=== PATIENT | female | born 2000 | race Hispanic/Latino ===

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

== ENCOUNTER 2020-12-03 19:36 | Emergency (ER) | payer BC ==
[~2020-12-03 19:36] MED LIST: Iopamidol-370 76% 500 ML 1 ML ONE
[2020-12-03 20:43] LABS: Bacteria/HPF 4+ HPF (None Seen); Bilirubin Negative (Negative); Blood, Urine Negative (Negative); Clarity Clear (Clear); Glucose, Urine (Dipstick) Normal (Negative); Ketone, Urine Negative (Negative); Leukocyte 250 Leu/uL (Negative); Nitrite Negative (Negative); Protein, Urine (Dipstick) Negative (Neg-Trace); RBC/HPF 0-3 HPF (0-3); Squamous Epithelial 0-3 HPF (0-3); Urobilinogen Normal mg/dL (Less than 2); WBC/HPF 0-3 HPF (0-3)
[2020-12-03 20:47] LABS: #Eosinphils 0.2 thou/uL (0.0-0.7); #Lymphocytes 2.5 thou/uL (1.20-3.40); #Monocytes 0.5 thou/uL (0.11-0.59); #Neutrophils 4.2 thou/uL (1.40-6.50); %Basophils 0.6 % (0.0-1.0); %Eosinophils 2.4 % (0.0-10.0); %Lymphocytes 33.7 % (21.0-51.0); %Monocytes 6.3 % (0.0-10.0); %Neutrophils 57.1 % (42.0-75.0); Hemoglobin 13.1 g/dL (12.0-16.0); Mean Corpuscular HGB CONC 33.7 g/dL (32.0-36.0); Mean Corpuscular Hemoglobin 27.1 pg (27.0-31.0); Mean Corpuscular Volume 80.3 fL (78.0-98.0); Platelet Count 296 thou/uL (130-400); RBC Distribution Width 13.6 % (11.5-14.5); Red Blood Cell (RBC) Count 4.85 mill/uL (4.20-5.40); White Blood Cell (WBC) Count 7.3 thou/uL (4.8-10.8)
[2020-12-03 20:50] LABS: Pregnancy Test - Urine (BHCG) Negative (Negative); Pregu Control Background? CLEAR/WHITE (CLR/WHITE); Pregu Control Bar Appear? YES (CONTROL BAR)
[2020-12-03 22:09] LABS: Albumin 3.9 g/dL (3.5-5.0)
[2020-12-03 22:10] LABS: Chloride 103 mmol/L (98-107); Potassium 3.7 mmol/L (3.5-5.1); Sodium 135 mmol/L (136-145)
[2020-12-03 22:11] LABS: Calcium 8.5 mg/dL (7.8-10.44); Glucose 94 mg/dL (70-105)
[2020-12-03 22:12] LABS: Globulin 2.6 g/dL (2.4-3.5); Protein, Total 6.5 g/dL (6.0-8.3)
[2020-12-03 22:13] LABS: Anion Gap 13 mmol/L (10-20); Bilirubin, Total 0.3 mg/dL (0.2-1.2); Carbon Dioxide 23 mmol/L (22-29)
[2020-12-03 22:14] LABS: Alkaline Phosphatase 82 U/L (40-110)
[2020-12-03 22:15] LABS: Calc. Creatinine Clearance 0 mL/min (70-130)
[2020-12-03 22:16] LABS: BUN (Urea Nitrogen) 9 mg/dL (7.0-18.7)
[2020-12-03 22:17] LABS: ALT (SGPT) 22 U/L (8-55); AST (SGOT) 15 U/L (5-34)
[2020-12-03 22:18] LABS: Lipase 57 U/L (8-78)
== END 2020-12-03 22:24 | disposition home or self-care (01) ==
LOC: ERS 19:36
DX: I88.0 Nonspecific mesenteric lymphadenitis (principal); R03.0 Elevated blood-pressure reading, without diagnosis of hypertension; Z79.899 Other long term (current) drug therapy
CPT/HCPCS: 36415; 74177; 80053; 81003; 81015; 81025; 83690; 85025; 87086; Q9967

== ENCOUNTER 2022-03-27 19:48 | Emergency (ER) | payer BC, SELFPAY ==
[2022-03-27 21:29] LABS: Bilirubin Negative (Negative); Blood, Urine 3+ (Negative); Clarity Turbid (Clear); Glucose, Urine (Dipstick) Normal (Negative); Ketone, Urine Negative (Negative); Leukocyte Negative Leu/uL (Negative); Nitrite Negative (Negative); Protein, Urine (Dipstick) 20 mg/dL (Neg-Trace); RBC/HPF Greater than 50 HPF (0-3); Specific Gravity, Urine 1.025 (1.002-1.036); Squamous Epithelial 0-3 HPF (0-3); Urobilinogen Normal mg/dL (Less than 2)
[2022-03-27 21:30] LABS: Bacteria/HPF 1+ HPF (None Seen)
[2022-03-27 21:41] LABS: #Eosinphils 0.2 thou/uL (0.0-0.7); #Monocytes 0.9 thou/uL (0.11-0.59); #Neutrophils 5.2 thou/uL (1.40-6.50); %Basophils 0.4 % (0.0-1.0); %Eosinophils 2.6 % (0.0-10.0); %Lymphocytes 32.1 % (21.0-51.0); %Monocytes 9.7 % (0.0-10.0); %Neutrophils 55.2 % (42.0-75.0); Hemoglobin 11.9 g/dL (12.0-16.0); Mean Corpuscular HGB CONC 34.3 g/dL (32.0-36.0); Mean Corpuscular Hemoglobin 27.5 pg (27.0-31.0); Mean Corpuscular Volume 80.3 fl (78.0-98.0); Mean Platelet Volume 7.9 fL (7.4-10.4); Platelet Count 254 10x3/uL (130-400); RBC Distribution Width 14.7 % (11.5-14.5); Red Blood Cell (RBC) Count 4.31 mill/uL (4.20-5.40); White Blood Cell (WBC) Count 9.3 10x3/uL (4.8-10.8)
[2022-03-27 22:02] LABS: ALT (SGPT) 13 U/L (8-55); AST (SGOT) 17 U/L (5-34); Albumin 3.8 g/dL (3.5-5.0); Alkaline Phosphatase 62 U/L (40-110); Anion Gap 11 mmol/L (10-20); BUN (Urea Nitrogen) 10 mg/dL (7.0-18.7); Bilirubin, Total 0.2 mg/dL (0.2-1.2); Calc. Creatinine Clearance 0 mL/min (70-130); Calcium 8.6 mg/dL (7.8-10.44); Carbon Dioxide 24 mmol/L (22-29); Chloride 106 mmol/L (98-107); Estimated GFR 125; Globulin 2.7 g/dL (2.4-3.5); Glucose 95 mg/dL (70-105); Lipase 63 U/L (8-78); Potassium 3.6 mmol/L (3.5-5.1); Protein, Total 6.5 g/dL (6.0-8.3); Sodium 137 mmol/L (136-145)
[2022-03-27] MEDS ORDERED: Ondansetron PF 4 MG/2 ML Vial ONE (22:16)
[2022-03-27] MEDS ORDERED: Morphine 4 MG/ML VIAL ONE (23:19)
[2022-03-28 16:51] LABS: Chlam.trachomatis by PCR,Urine Not Detected (NotDetected); GC N.gonorrhoeae PCR,UrineVOID Not Detected (NotDetected)
== END 2022-03-28 01:35 | disposition home or self-care (01) ==
LOC: ERS 19:48
DX: O99.611 Diseases of the digestive system complicating pregnancy, first trimester (principal); Z3A.09 9 weeks gestation of pregnancy
CPT/HCPCS: 36415; 76770; 76856; 80053; 81003; 81015; 83690; 84702; 85025; 86900; 86901; 87086; 87480; 87491; 87510; 87591; 87660; 96374; 96375; J2270; J2405